=== PATIENT | male | born 1965 | race Two or more races ===

== ENCOUNTER 2023-01-01 08:05 | Inpatient (IN) | payer OTHER ==
[~2023-01-01] VITALS: Ht 152.4 cm; Wt 76.2 kg
--- NOTE | 2023-01-01 08:28 | NUR ---
SE RECIVE MASCULINO ALERTA Y ORIENTADO X3 QUIEN REFIERE VENIR POR INTERVENCION QUIRURGICA POR DR DONALDSON. SE MIDEN S/V Y SE UBICA
--- NOTE | 2023-01-01 09:07 | NUR ---
PTE EVALUADO POR DR. MELLO. MS DAMON ORIENTA PTE SOBRE TX A SEGUIR, EL CUAL REFIERE ENTENDER. LA MISMA COLECTA MUESTRAS, CANALIZA PTE Y ADM. MEDICAMENTOS BERNABE ORDEN MEDICA BAJO MEDIDAS ASEPTICAS. PEND PLACA DE [place], CT ABD/PEL CON CONTRASTES PO Y IV.
[2023-01-06] MEDS ORDERED: TRAM1TAB98 PO (10:11)
[2023-01-06] MEDS ORDERED: PEPCID AC20 MG PO (10:11)
[2023-01-06] MEDS ORDERED: LEVSIN/SL0.125 MG SL (10:12)
[2023-01-06] MEDS ORDERED: INTESTINEX680 M1 PO (10:12)
== END 2023-01-06 12:21 | disposition home or self-care (01) | DRG 330 ==
LOC: ER 08:05 → EDSEX 10:20 → SURH 10:20
PROVIDERS: ADMIT Surgery; ATTEND Surgery
PROC: BW24YZZ Computerized Tomography (CT Scan) of Chest and Abdomen using Other Contrast (ICD-10-PCS; 2023-01-01)
PROC: 0DBP4ZZ Excision of Rectum, Percutaneous Endoscopic Approach (ICD-10-PCS; 2023-01-03)
PROC: 07BC4ZZ Excision of Pelvis Lymphatic, Percutaneous Endoscopic Approach (ICD-10-PCS; 2023-01-03)
PROC: 0DJD8ZZ Inspection of Lower Intestinal Tract, Via Natural or Artificial Opening Endoscopic (ICD-10-PCS; 2023-01-03)
PROC: 0DTN4ZZ Resection of Sigmoid Colon, Percutaneous Endoscopic Approach (ICD-10-PCS; principal; 2023-01-03 14:45)
DX: C19 Malignant neoplasm of rectosigmoid junction (principal); K61.1 Rectal abscess; R59.0 Localized enlarged lymph nodes; D64.9 Anemia, unspecified; G47.30 Sleep apnea, unspecified

== ENCOUNTER 2023-02-10 07:46 | Day surgery (SDC) | payer OTHER ==
[~2023-02-10] VITALS: Ht 170.2 cm; Wt 79.4 kg
[~2023-02-10 07:46] MED LIST: INTESTINEX680 M1 PO; LEVSIN/SL0.125 MG SL; PEPCID AC20 MG PO; TRAM1TAB98 PO
[2023-02-10] MEDS ORDERED: TRAM1TAB98 PO (12:35)
== END 2023-02-10 14:25 | disposition home or self-care (01) ==
LOC: CIR.AMB 07:46
PROVIDERS: ATTEND Surgery
DX: C20 Malignant neoplasm of rectum (principal); Z20.822 Contact with and (suspected) exposure to COVID-19; I10 Essential (primary) hypertension; K56.601 Complete intestinal obstruction, unspecified as to cause